=== PATIENT | female | born 1975 | race American Indian/Alaskan Native ===

== ENCOUNTER 2019-11-24 15:33 | Outpatient (CLI) | payer BC ==
--- NOTE | 2019-11-24 16:47 | XRay Report ---
CHEST 2 VIEWS INDICATION: MILD PERSISTENT ASTHMA WITH EXACERBATION. COMPARISON: None FINDINGS: Support devices: None. Heart: Within normal limits. Lungs: No acute air space or interstitial disease. Pleura: No significant pleural effusion. No pneumothorax. Additional findings: None. IMPRESSION: 1. No acute findings. Signer Name: Juan Reyes MD Signed: 11/24/2019 4:42 PM Workstation Name: [id number]
[2019-11-24 18:34] LABS: Hematocrit 35.2 % (30.3-42.9); Hemoglobin 11.4 gm/dl (10.1-14.3); Mean Corpuscular HGB Conc 33 % (30-34); Mean Corpuscular Volume 84 fl (79-97); Platelet Count 206 K/mm3 (140-440); Red Blood Count 4.19 M/mm3 (3.65-5.03); Red Cell Distribution Width 17.5 % (13.2-15.2)
[2019-11-24 18:51] LABS: Alanine Aminotransferase 11 units/L (7-56); Albumin 4.4 g/dL (3.9-5); Blood Urea Nitrogen 9 mg/dL (7-17); Chol/HDL Ratio 1.71 %; HDL Cholesterol 116 mg/dL (40-59); Hemolysis Index 0; LDL Cholesterol,Direct 85 mg/dL (50-130)
[2019-11-24 19:06] LABS: BUN/Creatinine Ratio 15
== END 2019-11-24 15:34 | disposition home or self-care (01) ==
LOC: LAB 15:33
PROVIDERS: ATTEND Internal Medicine
DX: J45.31 Mild persistent asthma with (acute) exacerbation (principal); J20.9 Acute bronchitis, unspecified
CPT/HCPCS: 36415; 71046; 80053; 80061; 82785; 84436; 84443; 85027

== ENCOUNTER 2019-12-22 14:02 | Emergency (ER) | payer BC ==
[2019-12-22 14:13] VITALS: BP 122/83
--- NOTE | 2019-12-22 14:45 | XRay Report ---
Left knee-3 views INDICATION: pain, acute on chronic. COMPARISON: None. IMPRESSION: No acute osseous or soft tissue abnormality. Moderate tricompartmental DJD. Signer Name: Jordan Martinez MD Signed: 12/22/2019 2:41 PM Workstation Name: [id number]
--- NOTE | 2019-12-22 17:12 | Emergency Department Report ---
ED Extremity Problem HPI - General Chief complaint: Extremity Problem,Nontraumatic Stated complaint: KNEE INJURY Time Seen by Provider: 12/22/19 16:10 Source: patient Mode of arrival: Ambulatory Limitations: No Limitations - History of Present Illness Initial comments: Patient is a 44-year-old female presents emergency room with complaints of left knee pain that began 5 days ago. She denies any fall or injury. She denies any numbness or weakness. She states that when she was in the eighth grade she did have a dislocation of the left knee but did not have to have surgery. She states that she feels the pain when she walks up the steps or with ambulation. She is still ambulatory. No past medical history. No allergies to medications. Last menstrual cycle December 07. - Related Data Previous Rx's Medication Instructions Recorded Last Taken Type Menthol/Camphor [Carson Lincoln 1 applicatio TP BID #18 oint...g. 12/22/19 Unknown Rx Ointment] Naproxen [EC-Naprosyn] 500 mg PO BID PRN #14 tablet. 12/22/19 Unknown Rx Allergies Allergy/AdvReac Type Severity Reaction Status Date / Time No Known Allergies Allergy Unverified 12/22/19 14:10 ED Review of Systems ROS: Stated complaint: KNEE INJURY Other details as noted in HPI Comment: All other systems reviewed and negative ED Past Medical Hx - Past Medical History Previous Medical History?: No - Surgical History Past Surgical History?: No - Social History Smoking Status: Never Smoker Substance Use Type: None - Medications Home Medications: Home Medications Medication Instructions Recorded Confirmed Last Taken Type Menthol/Camphor [Carson Lincoln 1 applicatio TP BID #18 oint...g. 12/22/19 Unknown Rx Ointment] Naproxen [EC-Naprosyn] 500 mg PO BID PRN #14 tablet. 12/22/19 Unknown Rx ED Physical Exam - General Limitations: No Limitations General appearance: alert, in no apparent distress - Head Head exam: Present: atraumatic, normocephalic - Eye Eye exam: Present: normal appearance - ENT ENT exam: Present: mucous membranes moist - Extremities Exam Extremities exam: Present: other (mild anterior knee ttp, FROM of the RLE, mild discomfort with full flexion, no deformity, no ecchymosis, no edema, no neurovascularly intact) - Neurological Exam Neurological exam: Present: alert, oriented X3 - Psychiatric Psychiatric exam: Present: normal affect, normal mood - Skin Skin exam: Present: warm, dry, intact ED Course Vital Signs 12/22/19 14:12 Temperature 97.6 F Pulse Rate 103 H Respiratory 20 Rate Blood Pressure 122/83 O2 Sat by Pulse 100 Oximetry ED Medical Decision Making - Radiology Data Radiology results: report reviewed Left knee-3 views INDICATION: pain, acute on chronic. COMPARISON: None. IMPRESSION: No acute osseous or soft tissue abnormality. Moderate tricompartmental DJD. Signer Name: Jordan Martinez MD Signed: 12/22/2019 2:41 PM Workstation Name: [id number] Transcribed By: KAYLEY Dictated By: Jordan Martinez MD Electronically Authenticated By: Jordan Martinez MD Signed Date/Time: 12/22/191440 DD/ 39 TD/TT: - Medical Decision Making Patient is a 44-year-old female presents emergency room with complaints of left knee pain that began 5 days ago. She denies any fall or injury. She denies any numbness or weakness. She states that when she was in the eighth grade she did have a dislocation of the left knee but did not have to have surgery. She states that she feels the pain when she walks up the steps or with ambulation. She is still ambulatory. No past medical history. No allergies to medications. Last menstrual cycle December 07. vss. on exam: mild anterior knee ttp, FROM of the RLE, mild discomfort with full flexion, no deformity, no ecchymosis, no edema, no neurovascularly intact. XR left knee ordered prior to my examination and shows: IMPRESSION: No acute osseous or soft tissue abnormality. Moderate tricompartmental DJD. pt given toradol IM. discussed all results with pt and answered questions. Patient given prescription for naproxen and Carson balm ointment. Advised patient to please use medication as prescribed. May use ice for 15 minutes at a time, rest, elevation of the leg. Follow-up with an orthopedic doctor. Follow-up with a primary care doctor. Return to emergency room for any new or worsening symptoms. Critical care attestation.: If time is entered above; I have spent that time in minutes in the direct care of this critically ill patient, excluding procedure time. ED Disposition Clinical Impression: Acute pain of left knee Osteoarthritis Qualifiers: Osteoarthritis location: knee Osteoarthritis type: unspecified Laterality: right Qualified Code(s): M17.11 - Unilateral primary osteoarthritis, right knee Disposition: TO HOME OR SELFCARE Is pt being admited?: No Does the pt Need Aspirin: No Condition: Stable Instructions: Osteoarthritis (ED), RICE Therapy (ED) Additional Instructions: please use medication as prescribed. May use ice for 15 minutes at a time, rest, elevation of the leg. Follow-up with an orthopedic doctor. Follow-up with a primary care doctor. Return to emergency room for any new or worsening symptoms. Prescriptions: Naproxen [EC-Naprosyn] 500 mg PO BID PRN #14 tablet.dr MALONE Reason: pain Menthol/Camphor [Carson Lincoln Ointment] 1 applicatio TP BID #18 oint...g. Referrals: AMADA PALUMBO MD [Staff Physician] - 3-5 Days [facility] [Provider Group] - 3-5 Days Time of Disposition: 17:24 Print Language: MOHAWK
== END 2019-12-22 17:39 | disposition home or self-care (01) ==
LOC: ED 14:02
DX: M17.12 Unilateral primary osteoarthritis, left knee (principal); Z79.899 Other long term (current) drug therapy